=== PATIENT | male | born 1980 | race Two or more races ===

== ENCOUNTER 2018-02-15 10:59 | Day surgery (SDC) | payer OTHER ==
[~2018-02-15 10:59] MED LIST: HYDROmorphone 2 MG/ML VIAL IV PRN; IBUP-1007 PO; IV RINGERS,LACTATED 1000ML 1,000 ML IV SCH; LIDOCAINE 1% PF 2 ML VIAL. ID PRN; MORPHINE SULFATE 2 MG/ML VIAL. IV PRN; ONDANSETRON PF 4 MG/2 ML VIAL. IV PRN; PROCHLORPERAZINE 10 MG/2 ML VIAL. IV PRN; fentaNYL PF VIAL 100 MCG/2 ML VIAL IV PRN
[2018-02-15] MEDS ORDERED: fentaNYL PF VIAL 100 MCG/2 ML VIAL ONE ×3 (11:21→13:46)
[2018-02-15] MEDS ORDERED: ONDANSETRON PF 4 MG/2 ML VIAL. ONE (11:21)
[2018-02-15] MEDS ORDERED: LIDOCAINE 2% PF Vial for OR 5 ML VIAL. ONE (11:21)
[2018-02-15] MEDS ORDERED: PROPOFOL 20 ML IV ONE ×2 (11:21→13:12)
[2018-02-15] MEDS ORDERED: MIDAZOLAM HCL/PF 2 MG/2 ML VIAL. ONE (11:21)
[2018-02-15] MEDS ORDERED: ROCURONIUM 50 MG/5 ML VIAL. ONE (11:21)
[2018-02-15] MEDS ORDERED: DEXAMETHASONE SOD PHOS 20 MG/5 ML VIAL. ONE (11:21)
[2018-02-15] MEDS ORDERED: BUPIVACAINE-EPI 0.5%-1:200000 50 ML VIAL. ONE (11:44)
[2018-02-15] MEDS ORDERED: BUPIVACAINE 0.5% 50 ML VIAL. ONE (11:44)
[2018-02-15] MEDS ORDERED: BUPIVACAINE-EPI 0.25%-1:200000 50 ML VIAL. ONE (11:44)
[2018-02-15] MEDS ORDERED: KETOROLAC 30 MG/ML INJ FOR OR. INJ ONE (11:48)
[2018-02-15] MEDS ORDERED: DESFLURANE 61 TO 120 MINUTES IH ONE (13:33)
[2018-02-15] MEDS ORDERED: NEOSTIGMINE METHYLSULFATE 5 MG/5 ML SYRINGE. ONE (13:38)
[2018-02-15] MEDS ORDERED: GLYCOPYRROLATE 1 MG/5 ML VIAL. ONE (13:39)
--- NOTE | 2018-02-15 13:53 | PDOC4 ---
Operative Note Operative Note Operative Note: Preoperative Diagnosis: Ventral hernia, right abdominal nodule Postoperative Diagnosis: Same Procedure: Ventral hernia repair with mesh, excision of right abdominal nodule Surgeon: Bj Wallacet: Luisana DICKINSON Anesthesia: Gen. EBL: 20 mL Specimen: right abdominal nodule to pathology Drains: none Complications: none Indication: The patient is a 37-year-old gentleman who presented with a ventral hernia located superior to his umbilicus. He requests operative repair. The plan is to proceed with a ventral hernia repair with mesh. The details and risks of surgery were discussed. The risks include bleeding, infection, recurrence, pain, anesthetic risk, potential need for additional surgery or procedure. He understands and would like to proceed. In addition he has a right- sided abdominal nodule that is bothersome when he requests excision. On examination it seems most consistent with a lipoma. Description: The patient was taken to the operating room and placed supine on the operating table. Gen. anesthesia was performed. The abdomen was prepped with ChloraPrep and draped with sterile towels, sheets, and an Ioban. A vertical incision was made superior to the umbilicus and the location of the hernia. Cautery dissection was carried down through subcutaneous tissue. There was an obvious hernia sac with extruded preperitoneal fat and possibly omentum located in the subcutaneous tissues. This was mobilized circumferentially down to the fascial defect. A preperitoneal plane was then developed with cautery and blunt dissection. The hernia sac and its contents were then fully reduced. A medium sized Ventralex ST was then placed in the preperitoneal plane deep to the fascia. The mesh rested well and provided coverage in all directions with good overlap. The mesh was sutured to the fascia at the 12, 3, 6, 9:00 positions using 0 Prolene in a horizontal mattress fashion. The fascial edges were then approximated over the mesh with interrupted 0 Prolene sutures. The deep subcutaneous tissue was closed with 2-0 Vicryl while the initial subcutaneous tissues closed with 3-0 Vicryl. The skin was closed with 4-0 Monocryl. A small incision was then made in the right upper quadrant overlying the palpable nodule. Blunt dissection was carried down into the subcutaneous tissue and a lobulated lipoma was encountered. The lipoma was mobilized from the surrounding tissues and measured 2 x 3 cm and was sent to pathology for evaluation. Hemostasis was achieved with cautery. The skin was closed with 4-0 Monocryl. Both incisions were infiltrated with quarter percent Marcaine with epinephrine. Steri-Strips and sterile dressings were applied. The patient tolerated the procedure well and was sent to the recovery room in stable condition. At the end of the case all counts were correct. RENETTA FERMIN MD Feb 15, 2018 13:53
--- NOTE | 2018-02-15 13:55 | DISCH ---
DISCHARGE INSTRUCTIONS Condition on Discharge Condition on Discharge: Stable Activity After Discharge Activity Instructions for Disc: Other, see below (no lifting over 20 lbs or strenuous activity) Driving Instructions after Dis: Other, see below (no driving while taking pain meds) Diet after Discharge Diet after Discharge: Regular Wound Incision Care Wound/Incision Care: Other, see below (keep dressings clean and dry X 72 hours , may then remove and shower) Follow-Up Follow up with: Dr Fermin in 2 weeks in office, call for appointment RENETTA FERMIN MD Feb 15, 2018 13:55
[2018-02-15] MEDS ORDERED: oxyCODONE/APAP 5/325 1 TAB TABLET PO PRN ×2 (14:00)
[2018-02-15] MEDS: fentaNYL PF VIAL 100 MCG/2 ML VIAL IV PRN ×2 (14:23→14:41)
[2018-02-15] MEDS ORDERED: OXYC-323 PO (15:03)
[2018-02-15 15:38] VITALS: BP 137/84
--- NOTE | 2018-02-16 19:07 | PATHOLOGY ---
[facility] Accession Number: [id number] . 01 Material submitted: . RIGHT ABDOMINAL NODULE . 01 Clinical history: . Abdominal lipoma . 02 Diagnosis: Segments of fibroadipose tissue, right abdominal wall nodule: - Lipoma with focal features of angiolipoma. [facility] [[email or web address]02/16/2018 . 02 Comment: There is no evidence of malignancy. ([facility] 02/16/2018) . 02 Electronically signed: . Nigel Banda MD, Pathologist NPI- [id number] . 01 Gross description: . The specimen is received in formalin, labeled "[place], [place] and right abdominal nodule", are multiple irregular fragments of yellow lobulated soft tissue partially covered by a thin das-white membrane measuring 3.2 x 2.0 x 1.0 cm in aggregate. Sectioning shows a glistening, yellow homogeneous cut surface with no discrete lesions. The specimen is entirely submitted in A1-A2. ([facility]; 02/15/2018) SHS/SHS . 02 Pathologist provided ICD-10: D17.79 . 02 CPT . 081697 Performed at: [facility] [address], [place] [id number] MD Maynor Richey MD Phone: [phone] Performed at: 02 [facility] [address] [place], [place] [id number] MD Nigel Banda MD Phone: [phone]
== END 2018-02-15 16:40 | disposition home or self-care (01) ==
LOC: SURG 10:59
PROVIDERS: ATTEND Surgery
DX: K43.9 Ventral hernia without obstruction or gangrene (principal); D17.39 Benign lipomatous neoplasm of skin and subcutaneous tissue of other sites; E66.9 Obesity, unspecified; Z68.35 Body mass index [BMI] 35.0-35.9, adult; Z79.899 Other long term (current) drug therapy; Z79.82 Long term (current) use of aspirin
CPT/HCPCS: 22903; 49560; 49568; 88304; A7015; J0690; J1100; J2001; J2250; J2270; J2405; J2704; J2710; J3010; J3490; J7120; J1885

== ENCOUNTER → 2018-09-15 | Outpatient (CLI) | payer OTHER ==
[~2018-09-15] MED LIST changes: -HYDROmorphone 2 MG/ML VIAL IV PRN; -IV RINGERS,LACTATED 1000ML 1,000 ML IV SCH; -LIDOCAINE 1% PF 2 ML VIAL. ID PRN; -MORPHINE SULFATE 2 MG/ML VIAL. IV PRN; -ONDANSETRON PF 4 MG/2 ML VIAL. IV PRN; +OXYC1TAB15 PO; -PROCHLORPERAZINE 10 MG/2 ML VIAL. IV PRN; -fentaNYL PF VIAL 100 MCG/2 ML VIAL IV PRN
--- NOTE | 2018-09-15 16:53 | RAD ---
Right upper quadrant abdominal ultrasound History: Post op umbilical hernia repair 02-15-18; area of pain and lumps Comparison: None. Technique: Transabdominal ultrasound images are obtained. Findings: Periumbilical abdomen with and without Valsalva maneuver does not demonstrate definite hernia. Right lower quadrant area of pain with and without Valsalva maneuver does not demonstrate a peritoneal defect. No focal abnormality. In the left upper quadrant area of lump, in the subcutaneous fat, there is a 7 mm round hyperechogenicity. In the right upper quadrant area of lump there are 2 hyperechoic lesions one measuring 10 mm, the other 8 mm. These lesions are all the same in appearance and may be lipomas. IMPRESSION: 1. No evidence of recurrent hernia. 2. Subcentimeter well-circumscribed hyperechoic lesions in the subcutaneous fat of the ventral abdomen in the areas of lumps may be lipomas. Electronically signed by: Melo Cintron MD (09/15/2018 4:50 PM) [id number]
== END | disposition home or self-care (01) ==
LOC: US 15:30
PROVIDERS: ATTEND Surgery
DX: R19.02 Left upper quadrant abdominal swelling, mass and lump (principal); R19.01 Right upper quadrant abdominal swelling, mass and lump
CPT/HCPCS: 76705

== ENCOUNTER 2019-07-14 03:05 | Emergency (ER) | payer OTHER ==
[~2019-07-14] VITALS: Ht 175.3 cm; Wt 98.9 kg
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
[2019-07-14 03:30] LABS: BASO # 0.1 x10^3/uL (0.0-0.2); BASO % 1 % (0-3); EOS # 0.4 x10^3/uL (0.0-0.7); EOS % 4 % (0-3); HEMATOCRIT 46.5 % (39.0-53.0); HEMOGLOBIN 16.6 g/dL (13.0-17.5); LYMPH # 2.4 x10^3/uL (1.0-4.8); LYMPH % 26 % (24-48); MEAN CORPUSCULAR HEMOGLOBIN 32 pg (25-35); MEAN CORPUSCULAR HGB CONC 36 g/dL (31-37); MEAN CORPUSCULAR VOLUME 89 fL (79-100); MONO # 0.6 x10^3/uL (0.0-1.1); MONO % 6 % (0-9); NEUT # 5.7 x10^3/uL (1.8-7.7); NEUT % 63 % (31-73); PLATELET COUNT 241 x10^3/uL (140-400); RED BLOOD COUNT 5.25 x10^6/uL (4.30-5.70); RED CELL DISTRIBUTION WIDTH 12.7 % (11.5-14.5); WHITE BLOOD COUNT 9.1 x10^3/uL (4.0-11.0)
[2019-07-14] MEDS ORDERED: ONDANSETRON PF 4 MG/2 ML VIAL. IV ONE (03:30)
[2019-07-14] MEDS: fentaNYL PF VIAL 100 MCG/2 ML VIAL IV PRN ×2 (03:33→04:32)
[2019-07-14 03:40] LABS: PROTHROMBIN TIME PATIENT 12.7 SEC (11.7-14.0)
[2019-07-14] MEDS ORDERED: CONTRAST GIVEN. MC PRN (03:45)
[2019-07-14] MEDS ORDERED: IOHEXOL 300 MG/ML 100ML VIAL. IV ONE (03:45)
[2019-07-14 03:54] LABS: CALCIUM 8.5 mg/dL (8.5-10.1); CREATININE 0.7 mg/dL (0.7-1.3); GFR 124.9; POTASSIUM 4.3 mmol/L (3.5-5.1)
[2019-07-14 03:59] LABS: ALBUMIN 3.6 g/dL (3.4-5.0); ALBUMIN/GLOBULIN RATIO 1.2 (1.0-1.7); TOTAL BILIRUBIN 0.5 mg/dL (0.2-1.0); TOTAL PROTEIN 6.7 g/dL (6.4-8.2)
[2019-07-14 04:12] LABS: BILIRUBIN,URINE NEGATIVE (NEG); CLARITY,URINE CLEAR; COLOR,URINE YELLOW; NITRITE,URINE NEGATIVE (NEG); PROTEIN,URINE NEGATIVE (NEG-TRACE); UROBILINOGEN,URINE 0.2 mg/dL (0.2 mg/dL)
[2019-07-14 04:17] LABS: BACTERIA,URINE 0 /HPF (0-FEW); RBC,URINE 0 /HPF (0-2); SQUAMOUS EPITHELIAL CELL,UR OCC /LPF; WBC,URINE 0 /HPF (0-4)
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
[2019-07-14] MEDS ORDERED: OXYC1TAB15 PO (05:02)
[2019-07-14] MEDS ORDERED: DICL50TA4 PO (05:02)
[2019-07-14] MEDS ORDERED: ORPH100T PO (05:02)
[2019-07-14 05:30] VITALS: BP 139/80
--- NOTE | 2019-07-15 16:44 | EKG ---
[facility] [address] [place] [address] Test Date: 2019-07-14 Test Time: 03:20:38 Pat Name: RACHELLE COLEMAN Department: Room: Gender: M It Generalist: : 1980 Requested By: ТАТЬЯНА RAHMAN Order Number: [id number] Reading MD: Measurements Intervals Kimper Rate: 81 P: 38 RI: 170 QRS: 62 QRSD: 90 T: 14 QT: 358 QTc: 421 Interpretive Statements SINUS RHYTHM NORMAL ECG No previous ECG available for comparison
== END 2019-07-14 05:32 | disposition home or self-care (01) ==
LOC: ER 03:05
DX: S16.1XXA Strain of muscle, fascia and tendon at neck level, initial encounter (principal); S39.012A Strain of muscle, fascia and tendon of lower back, initial encounter; S20.212A Contusion of left front wall of thorax, initial encounter; R10.10 Upper abdominal pain, unspecified; V89.2XXA Person injured in unspecified motor-vehicle accident, traffic, initial encounter; Y93.89 Activity, other specified; Y92.413 State road as the place of occurrence of the external cause; Y99.8 Other external cause status
CPT/HCPCS: 36415; 70450; 71260; 72125; 74177; 80053; 81001; 85025; 85610; 85730; 93005; 96374; 96375; 96376; 99285; G0480; J2405; J3010; Q9967